=== PATIENT | female | born 1975 | race Caucasian/White ===

== ENCOUNTER 2020-07-23 22:24 | Emergency (ER) | payer SELFPAY ==
[~2020-07-23 22:24] MED LIST: DELSYM30 MG/5 ML PO; FLONASE 0.05% N16 GM; PREDNISONE 50 M50 MG PO; TAMIFLU 75 MG C75 MG PO; VENTOLIN HFA 66.7 GM INH; ZITHROMAX250 MG PO; ZOFRAN4 MG PO
== END 2020-07-23 23:17 | disposition left against medical advice (07) ==
LOC: ER1 22:24
DX: Z53.21 Procedure and treatment not carried out due to patient leaving prior to being seen by health care provider (principal)

== ENCOUNTER → 2021-04-10 | Outpatient (CLI) | payer OTHER | LOC: KOH-I 14:12 | DX: M79.671 Pain in right foot (principal); M19.071 Primary osteoarthritis, right ankle and foot | CPT/HCPCS: 73630 ==

== ENCOUNTER → 2021-04-22 | Outpatient (CLI) | payer OTHER | LOC: KOH-I 09:30 | DX: M19.071 Primary osteoarthritis, right ankle and foot (principal); M21.41 Flat foot [pes planus] (acquired), right foot | CPT/HCPCS: 73700 ==

== ENCOUNTER → 2021-05-27 | Outpatient (CLI) | payer OTHER ==
[~2021-05-27] MED LIST changes: +BACLOFEN20 MG PO; +BUSPIRONE HCL30 MG PO; +CETIRIZINE HCL10 MG PO; +DICLOFENAC SODIUM TOP; +GABAPENTIN800 MG PO; +IBU800 MG PO; +IMITREX100 MG PO; +INDOCIN 50 MG C50 MG PO; +KEPPRA 500 MG500 MG PO; +LAMICTAL TAB 2525 MG PO; +LINZESS290 MCG PO; +MOBIC15 MG PO; +PROAIR DIGIHAL90 MCG INH; +PROMETHAZINE HC25 M1 PO; +QULIPTA60 MG PO; +ROPINIROLE HCL4 MG PO; +SINGULAIR10 MG PO; +TIZANIDINE HCL4 MG PO; +VRAYLAR6 MG PO
[2021-05-27 10:32] LABS: HEMOGLOBIN 14.2 gm/dl (12.3-15.3); RED BLOOD COUNT 4.87 M/UL (4.00-5.10); WHITE BLOOD COUNT 10.7 K/UL (4.5-11.0)
[2021-05-27 10:52] LABS: BUN/CREATININE RATIO 14 (0-10)
== END ==
LOC: OPSV2 08:00
PROVIDERS: Podiatrist Foot & Ankle Surgery
DX: Z01.812 Encounter for preprocedural laboratory examination (principal)
CPT/HCPCS: 36415; 80048; 85027

== ENCOUNTER 2021-06-20 06:24 | Observation (INO) | payer OTHER ==
[~2021-06-20] VITALS: Ht 170.2 cm; Wt 123.6 kg
[2021-06-20 15:24] LABS: BUN/CREATININE RATIO 10 (0-10)
[2021-06-20 20:26] LABS: HEMOGLOBIN 14.4 gm/dl (12.3-15.3); RED BLOOD COUNT 4.92 M/UL (4.00-5.10); WHITE BLOOD COUNT 16.4 K/UL (4.5-11.0)
[2021-06-21] MEDS ORDERED: PERCOCET 5-3251 EACH PO (13:55)
== END 2021-06-21 15:20 | disposition home or self-care (01) ==
LOC: OR 06:24 → PROG CARE 17:08 → OR 17:40 → PROG CARE 17:40 → OR 06-21 08:53 → PROG CARE 06-21 08:53
PROVIDERS: Anesthesiology; ADMIT Internal Medicine
DX: M19.071 Primary osteoarthritis, right ankle and foot (principal); T84.84XA Pain due to internal orthopedic prosthetic devices, implants and grafts, initial encounter; G89.28 Other chronic postprocedural pain; M89.8X7 Other specified disorders of bone, ankle and foot; G93.40 Encephalopathy, unspecified; J44.9 Chronic obstructive pulmonary disease, unspecified; K21.9 Gastro-esophageal reflux disease without esophagitis; R56.9 Unspecified convulsions; F31.9 Bipolar disorder, unspecified; F41.8 Other specified anxiety disorders; E66.9 Obesity, unspecified; J45.909 Unspecified asthma, uncomplicated; Y79.2 Prosthetic and other implants, materials and accessory orthopedic devices associated with adverse incidents; Y83.8 Other surgical procedures as the cause of abnormal reaction of the patient, or of later complication, without mention of misadventure at the time of the procedure; Z96.698 Presence of other orthopedic joint implants; Z87.19 Personal history of other diseases of the digestive system; Z72.0 Tobacco use; Z93.0 Tracheostomy status; Z90.49 Acquired absence of other specified parts of digestive tract; Z98.51 Tubal ligation status; Z88.8 Allergy status to other drugs, medicaments and biological substances
CPT/HCPCS: 36415; 36600; 70450; 73630; 76000; 80048; 82140; 82803; 82962; 83735; 85027; 93005; C1713; G0378; J0690; J1100; J1885; J2001; J2060; J2250; J2270; J2405; J2704; J2710; J2795; J3010; J3370; J7050; J7120

== ENCOUNTER → 2021-07-03 | Outpatient (CLI) | payer OTHER ==
[~2021-07-03] MED LIST changes: +PERCOCET 5-3251 EACH PO
== END ==
LOC: KOH-I 13:33
DX: M79.671 Pain in right foot (principal); Z98.1 Arthrodesis status; Z87.81 Personal history of (healed) traumatic fracture
CPT/HCPCS: 73630

== ENCOUNTER → 2021-07-17 | Outpatient (CLI) | payer OTHER | LOC: KOH-I 09:41 | DX: S92.901D Unspecified fracture of right foot, subsequent encounter for fracture with routine healing (principal); X58.XXXD Exposure to other specified factors, subsequent encounter; Z98.890 Other specified postprocedural states; M19.071 Primary osteoarthritis, right ankle and foot | CPT/HCPCS: 73630 ==

== ENCOUNTER → 2021-08-21 | Outpatient (CLI) | payer OTHER | LOC: KOH-I 09:45 | DX: M79.671 Pain in right foot (principal) | CPT/HCPCS: 73630 ==

== ENCOUNTER → 2021-09-08 | Outpatient (CLI) | payer OTHER | LOC: KOH-I 10:50 | DX: M79.671 Pain in right foot (principal); M19.071 Primary osteoarthritis, right ankle and foot | CPT/HCPCS: 73630 ==